=== PATIENT | female | born 1950 | race Asian ===

== ENCOUNTER 2018-02-06 10:22 | Emergency (ER) | payer OTHER ==
[~2018-02-06] VITALS: Ht 160 cm; Wt 59.0 kg
[2018-02-06 10:35] VITALS: BP 175/95
[2018-02-06] MEDS ORDERED: UNOBMED (10:39)
[2018-02-06] MEDS ORDERED: Bacitracin Oint UD TOPIC ONE (11:00)
[2018-02-06] MEDS ORDERED: Morphine Sulfate 4mg/ml Inj (IV/IM USE ONLY) IVP ONE (11:00)
[2018-02-06 11:28] LABS: APPEARANCE,URINE CLEAR; BILIRUBIN, URINE NEGATIVE (NEGATIVE); COLOR,URINE PALE YELLOW; GLUCOSE, URINE (UA) NEGATIVE (NEGATIVE); KETONES,URINE NEGATIVE (NEGATIVE); LEUKOCYTE ESTERASE ,URINE 2+ (NEGATIVE); NITRITE,URINE NEGATIVE (NEGATIVE); PH,URINE 6 (4.5-8.0); PROTEIN,URINE NEGATIVE (NEGATIVE); UROBILINOGEN,URINE NORMAL MG/DL (0.0-1.0)
[2018-02-06 11:30] LABS: BASOPHILS % (AUTO) 1.4 % (0.0-2.0); EOSINOPHILS % (AUTO) 1.3 % (0.0-3.0); HEMOGLOBIN 12.5 G/DL (12.0-16.0); MEAN CORPUSCULAR VOLUME 83 FL (80-99); MONOCYTES % (AUTO) 9.9 % (1.0-10.0); NEUTROPHILS % (AUTO) 59.5 % (45.0-75.0); PLATELET COUNT 334 K/UL (150-450); RED BLOOD COUNT 4.72 M/UL (4.20-5.40); WHITE BLOOD COUNT 6.5 K/UL (4.8-10.8)
[2018-02-06 11:46] LABS: ANION GAP 6 mmol/L (5-15); BLOOD UREA NITROGEN 19 mg/dL (7-18); CALCIUM 9.2 MG/DL (8.5-10.1); CARBON DIOXIDE 28 MMOL/L (21-32); CHLORIDE 103 MMOL/L (98-107); CREATININE 0.8 MG/DL (0.55-1.30); POTASSIUM 3.5 MMOL/L (3.5-5.1); SODIUM 137 MMOL/L (136-145)
[2018-02-06 11:51] LABS: ALANINE AMINOTRANSFERASE 15 U/L (12-78); ALBUMIN 3.9 G/DL (3.4-5.0); ALBUMIN/GLOBULIN RATIO 0.8 (1.0-2.7); ALKALINE PHOSPHATASE 79 U/L (46-116); ASPARTATE AMINO TRANSFERASE 22 U/L (15-37); BILIRUBIN,TOTAL 0.4 MG/DL (0.2-1.0); CREATINE KINASE 111 U/L (26-308)
[2018-02-06] MEDS ORDERED: HYDROmorphone 1mg/ml Carpuject IVP ONE (12:45)
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
[2018-02-06 14:12] VITALS: BP 145/91
[2018-02-06] MEDS ORDERED: Hydromorphone 0.5mg/0.5ml inj IVP ONE (14:15)
[2018-02-06] MEDS ORDERED: TRAMADOL HCL50 MG ORAL (14:50)
[2018-02-06] MEDS ORDERED: TYLENOL325 MG ORAL (14:50)
[2018-02-06] MEDS ORDERED: BACITRACIN15 GM TOPIC (14:50)
[2018-02-06] MEDS ORDERED: IBUPROFEN600 MG ORAL (14:50)
[2018-02-06] MEDS ORDERED: SILVADENE20 GM TP (14:50)
[2018-02-06 15:59] VITALS: BP 145/91
== END 2018-02-06 15:00 | disposition home or self-care (01) ==
LOC: EMR 12:13
DX: T21.24XA Burn of second degree of lower back, initial encounter (principal); T31.0 Burns involving less than 10% of body surface; X10.2XXA Contact with fats and cooking oils, initial encounter; Y92.89 Other specified places as the place of occurrence of the external cause; I10 Essential (primary) hypertension; E11.9 Type 2 diabetes mellitus without complications
CPT/HCPCS: 16020; 36415; 80053; 81003; 82550; 85025; 96361; 96374; 96375; 96376; 99284; J1170; J2270; J2405